=== PATIENT | male | born 1960 | race Caucasian/White ===

== ENCOUNTER 2019-09-07 19:46 | Emergency (ER) | payer OTHER ==
[~2019-09-07] VITALS: Ht 182.8 cm; Wt 120.2 kg
[~2019-09-07 19:46] MED LIST: VICODIN ES 7501 TAB PO
[2019-09-07 21:23] LABS: BASO % 0.3 % (0.0-1.0); EOS % 0.6 % (1.0-4.0); HEMATOCRIT 42.3 % (42.0-52.0); LYMPH # 2.7 10*3/uL (1.3-4.4); LYMPH % 39.1 % (27.0-41.0); MEAN CELL VOLUME 93.8 fl (80.0-94.0); MEAN CORPUSCULAR HGB CONC 33.1 g/dl (33.0-37.0); MEAN PLATELET VOLUME 9.7 fl (9.6-12.3); MONO # 1.1 10*3/uL (0.1-1.0); MONO % 16.8 % (3.0-9.0); NEUT # 2.9 10*3/uL (2.3-7.9); NEUT % 43.1 % (47.0-73.0); PLATELET COUNT AUTOMATED 239 10*3/uL (130-400); RED BLOOD COUNT 4.51 10*6/uL (4.50-5.90); RED CELL DISTRI WIDTH 12.7 % (0-14.5); WHITE BLOOD COUNT 6.8 10*3/uL (4.8-10.8)
[2019-09-07 21:52] LABS: ALBUMIN 3.3 gm/dl (3.1-4.5); ALKALINE PHOSPHATASE 42 U/L (45-117); BUN 13 mg/dl (7-24); CHLORIDE 105 mmol/L (98-107); CREATININE 1.34 mg/dL (0.70-1.30); SGOT/AST 27 IU/L (3-35); SGPT/ALT 39 U/L (12-78); SODIUM 138 mmol/L (136-145)
[2019-09-07] MEDS ORDERED: TESSALON PERLE100 M1 PO (23:46)
[2019-09-08] MEDS ORDERED: PROAIR HFA8.5 GM INH (00:17)
== END 2019-09-08 00:39 | disposition home or self-care (01) ==
LOC: ED 19:46
PROVIDERS: Nurse Practitioner
DX: B34.9 Viral infection, unspecified (principal); R07.89 Other chest pain; Z90.49 Acquired absence of other specified parts of digestive tract

== ENCOUNTER 2021-06-14 15:18 | Emergency (ER) | payer OTHER ==
[~2021-06-14] VITALS: Wt 113.4 kg
[~2021-06-14 15:18] MED LIST changes: +PROAIR HFA8.5 GM INH; +TESSALON PERLE100 M1 PO
== END 2021-06-14 18:02 | disposition home or self-care (01) ==
LOC: ED 15:18
DX: U07.1 COVID-19 (principal)